=== PATIENT | male | born 1960 | race Caucasian/White ===

== ENCOUNTER 2024-08-25 05:52 | Day surgery (SDC) | payer OTHER, SELFPAY ==
[2024-08-25] VITALS (7 sets, daily range): BP systolic 93–116; BP diastolic 49–68; BMI 26.6
[2024-08-25] MEDS: CELEBREX 200 MG PO (06:29)
[2024-08-25] MEDS: TYLENOL 1000 MG PO (06:29)
[2024-08-25] MEDS: NORMOSOL-R/PLASMALYTE-A 1000 IV (06:30)
== END 2024-08-25 09:20 | disposition home or self-care (01) ==
LOC: SDS 05:52
PROVIDERS: ATTENDING PHYSICIAN Specialist
DX: S83.242A Other tear of medial meniscus, current injury, left knee, initial encounter (principal); X58.XXXA Exposure to other specified factors, initial encounter
CPT/HCPCS: 29881